=== PATIENT | male | born 1960 | race Caucasian/White ===

== ENCOUNTER 2019-01-29 08:35 | Emergency (ER) | payer BC, OTHER ==
[2019-01-29 08:59] VITALS: BP 159/94; PULSE 75; O2SAT 97
--- NOTE | 2019-01-29 09:14 | ERPHSYRPT ---
- History of Present Illness Time Seen by Provider: 01/29/19 09:07 Source: patient Exam Limitations: no limitations Patient Subjective Stated Complaint: Finger got slammed in a door of a feather renovator, right middle finger, Triage Nursing Assessment: Pt presents with a wrapped up right middle finger, rates pain 3/10, states that it is throbbing, approx 2 cm laceration above the top knuckle, not bleeding at this time, hypertensive, doesn't appear to be in any distress, no other issues at this time Physician History: 58-year-old white male arrives with complaint of pain and laceration to his right third finger symptoms since yesterday. According to the patient he closed his finger in a feather [employer]ator door yesterday he has an approximately 2 cm laceration running along the volar surface of the distal third finger he has pain in the right third finger. He apparently had been seen in [place] at a clinic where he received a tetanus shot and told he needed more than just a tetanus shot so he proceeded to this emergency room. Injury occurred yesterday afternoon at 4 PM. Past medical history high blood pressure Past surgical history right inguinal hernia Occurred: yesterday (yesterday at 4 PM) Method of Injury: other (right third finger closed in feather renovator door) Quality: constant Severity of Pain-Max: moderate Severity of Pain-Current: mild Extremities Pain Location: 3rd finger: right Modifying Factors: Improves With: other (patient with dressing on right third finger since yesterday macerated tissue near laceration) Associated Symptoms: other (right third finger pain) Allergies/Adverse Reactions: penicillin Allergy (Intermediate, Verified 01/29/19 09:00) Nausea Home Medications: Aspirin 1 tab PO DAILY 01/05/15 [History] Orchard-3 Fatty Acids [Fish Oil] 1 tab PO DAILY 01/05/15 [History] Ramipril [Altace] 1 tab PO DAILY 01/05/15 [History] Hx Tetanus, Diphtheria Vaccination/Date Given: Yes (01/28/2019) - Review of Systems Constitutional: No Fever, No Chills Eyes: No Symptoms Ears, Nose, & Throat: No Symptoms Respiratory: No Cough, No Dyspnea Cardiac: No Chest Pain, No Edema, No Syncope Abdominal/Gastrointestinal: No Abdominal Pain, No Nausea, No Vomiting, No Diarrhea Genitourinary Symptoms: No Dysuria Musculoskeletal: Other (pain and laceration right third finger) Skin: Other (2 cm laceration volar surface distal right third finger macerated tissue adjacent to wound) Neurological: No Dizziness, No Focal Weakness, No Sensory Changes Psychological: No Symptoms Endocrine: No Symptoms All Other Systems: Reviewed and Negative - Past Medical History Pertinent Past Medical History: Yes Neurological History: No Pertinent History ENT History: No Pertinent History Cardiac History: Hypertension, Other Respiratory History: No Pertinent History Endocrine Medical History: No Pertinent History Musculoskeletal History: No Pertinent History GI Medical History: No Pertinent History History: No Pertinent History Psycho-Social History: No Pertinent History Male Reproductive Disorders: No Pertinent History Other Medical History: has hx of PVC's diagnosed 5 years ago no trouble recently seen Dr. Eldridge for that 5 yrs ago no family doctor gives refills for ramipril - Past Surgical History Past Surgical History: Yes Neuro Surgical History: No Pertinent History Cardiac: No Pertinent History Respiratory: No Pertinent History Gastrointestinal: No Pertinent History Genitourinary: No Pertinent History Musculoskeletal: Other Male Surgical History: No Pertinent History Other Surgical History: Tonsillectomy as a child and right rotator cuff repair in Jul 2014 - Social History Smoking Status: Never smoker Exposure to second hand smoke: No Drug Use: none Patient Lives Alone: Yes - Nursing Vital Signs Nursing Vital Signs: Initial Vital Signs Temperature 98.0 F 01/29/19 08:48 Pulse Rate 75 01/29/19 08:48 Blood Pressure 159/94 01/29/19 08:48 O2 Sat by Pulse Oximetry 97 01/29/19 08:48 Pain Scale Pain Intensity 3 - Physical Exam General Appearance: alert Eyes, Ears, Nose, Throat Exam: moist mucous membranes Neck Exam: non-tender, supple Cardiovascular/Respiratory Exam: chest non-tender, normal breath sounds, regular rate/rhythm, no respiratory distress Abdominal Exam: non-tender, No guarding Back Exam: normal inspection (will), No vertebral tenderness Shoulder Exam: normal inspection, non-tender, no evidence of injury, normal ROM Elbow/Forearm Exam: normal inspection, non-tender, no evidence of injury, normal ROM Wrist Exam: normal inspection (a), non-tender, no evidence of injury, normal ROM (for a) Hand Exam: normal ROM, No normal inspection (right third finger with a 2 cm laceration volar surface distal phalanx adjacent tissue macerated), No no evidence of injury Neuro/Tendon Exam: normal sensation, normal motor functions Mental Status Exam: alert, oriented x 3, cooperative Skin Exam: other (2 cm laceration right third finger volar surface macerated tissue adjacent to wound.) SpO2 Interpretation: normal (97%) SpO2: 97 - Course Nursing assessment & vital signs reviewed: Yes - Radiology Exams Right Other X-ray Interpretation: Discussed w/ radiologist (x-ray right third finger: Nondisplaced tuft fracture with laceration. No other bony, articular, or soft tissue abnormalities) Ordered Tests: Active Orders 24 hr Category Date Time Status Splint STAT Care 01/29/19 09:27 Active Wound Care STAT Care 01/29/19 09:26 Active FINGER(S) Stat Exams 01/29/19 09:23 Completed Medication Summary Discontinued Medications Generic Name Dose Route Start Last Admin Trade Name Freq PRN Reason Stop Dose Admin Bacitracin Zinc 0.9 gm 01/29/19 09:26 Baciguent Packet TP 01/29/19 09:27 STAT ONE - Progress Progress: improved Progress Note: 01/29/19 09:14 58-year-old white male arrives with complaint of laceration and crush injury to his right third finger distal phalanx symptoms since yesterday. According to patient he caught his finger in a door to a [employer]. He has a 2 cm laceration to the volar surface of the right third distal phalanx. Adjacent wound tissue is macerated. Patient apparently presented to went in clinic and was given a tetanus shot. Patient has been offered Tylenol or Advil for pain he states he really doesn't want anything right now./ Will go ahead and obtain x-ray of the right third finger. 01/29/19 09:38 X-ray right third finger: Nondisplaced tuft fracture with laceration. Will have nurse clean the right third finger apply bacitracin , apply dressing and finger guard. Will place patient on clindamycin. Patient will need to followup with either Dr. Woodard or [facility] orthopedics. - Departure Departure Disposition: Home Clinical Impression: Crush injury right third finger Phalanx, distal fracture of finger Qualifiers: Encounter type: initial encounter Finger: middle finger Fracture type: open Fracture alignment: nondisplaced Laterality: right Qualified Code(s): S62.662B - Nondisplaced fracture of distal phalanx of right middle finger, initial encounter for open fracture Condition: Fair Critical Care Time: No Referrals: TONY SMITH NP [Primary Care Provider] - Additional Instructions: Return home. Keep area clean and dry. Bacitracin to area daily until healed. Wear splint (finger guard) Clindamycin 300 mg orally 3 times a day for [address] Woodard or [facility] orthopedics bone and joint clinic. Return for acute distress or for severe symptoms or for any problems. Prescriptions: Clindamycin HCl 300 mg PO TID #30 capsule
[2019-01-29] MEDS ORDERED: BACIGUENT PACKET TP ONE (09:26)
--- NOTE | 2019-01-29 09:32 | XRAY ---
Indication: Pain following injury. Comparison: None 3 views of the right 3rd finger demonstrates nondisplaced tuft fracture with laceration. No other bony, articular, or soft tissue abnormalities.
[2019-01-29] MEDS ORDERED: CLEOCIN 150 MG CAPSULE PO ONE (09:43)
[2019-01-29] MEDS ORDERED: CLEOCIN 150 MG CAPSULE ONE (09:44)
== END 2019-01-29 09:56 | disposition home or self-care (01) ==
LOC: ED 08:35
DX: S62.662B Nondisplaced fracture of distal phalanx of right middle finger, initial encounter for open fracture (principal); W23.0XXA Caught, crushed, jammed, or pinched between moving objects, initial encounter; Y93.89 Activity, other specified; Y92.488 Other paved roadways as the place of occurrence of the external cause
CPT/HCPCS: 73140; 99283; A9270-GY